=== PATIENT | female | born 1965 | race Asian ===

== ENCOUNTER 2021-08-03 13:47 | Outpatient (CLI) | payer MEDICARE | END 2021-08-03 13:48 | disposition home or self-care (01) | LOC: CSHRAD 13:47 | PROVIDERS: ATTEND Family Medicine | DX: G89.29 Other chronic pain (principal); M17.12 Unilateral primary osteoarthritis, left knee ==

== ENCOUNTER 2022-05-22 16:01 | Outpatient (CLI) | payer MEDICARE | END 2022-05-22 16:02 | disposition home or self-care (01) | LOC: CSHRAD 16:01 | PROVIDERS: ATTEND Family Medicine | DX: J47.9 Bronchiectasis, uncomplicated (principal) | CPT/HCPCS: 71046 ==

== ENCOUNTER 2022-12-26 10:15 | Outpatient (CLI) | payer OTHER | END 2022-12-26 10:16 | disposition home or self-care (01) | LOC: CSHMAMMO 10:15 | PROVIDERS: ATTEND Family Medicine | DX: Z12.31 Encounter for screening mammogram for malignant neoplasm of breast (principal); M81.8 Other osteoporosis without current pathological fracture; Z80.3 Family history of malignant neoplasm of breast; Z85.3 Personal history of malignant neoplasm of breast; Z91.89 Other specified personal risk factors, not elsewhere classified; Z98.890 Other specified postprocedural states | CPT/HCPCS: 77063; 77067; 77080 ==

== ENCOUNTER 2024-12-31 10:09 | Outpatient (CLI) | payer OTHER | END 2024-12-31 10:10 | disposition home or self-care (01) | LOC: CSHMAMMO 10:09 | PROVIDERS: ATTEND Family Medicine | DX: Z12.31 Encounter for screening mammogram for malignant neoplasm of breast (principal); Z80.3 Family history of malignant neoplasm of breast; Z86.000 Personal history of in-situ neoplasm of breast; Z98.890 Other specified postprocedural states; Z91.89 Other specified personal risk factors, not elsewhere classified | CPT/HCPCS: 77063; 77067 ==

== ENCOUNTER 2025-04-20 12:37 | Outpatient (CLI) | payer OTHER | END 2025-04-20 12:38 | disposition home or self-care (01) | LOC: CSHRAD 12:37 | PROVIDERS: ATTEND Family Medicine | DX: M50.321 Other cervical disc degeneration at C4-C5 level (principal); M50.322 Other cervical disc degeneration at C5-C6 level; M47.812 Spondylosis without myelopathy or radiculopathy, cervical region; M50.323 Other cervical disc degeneration at C6-C7 level; M48.02 Spinal stenosis, cervical region | CPT/HCPCS: 72052 ==